=== PATIENT | female | born 1935 | race Two or more races ===

== ENCOUNTER 2018-07-31 10:50 | Emergency (ER) | payer OTHER ==
[~2018-07-31] VITALS: Ht 152.4 cm; Wt 59.0 kg
[2018-07-31] MEDS ORDERED: SYNTHROID50 MCG (10:55)
== END 2018-07-31 16:31 | disposition home or self-care (01) ==
LOC: ER 10:50
DX: S52.591A Other fractures of lower end of right radius, initial encounter for closed fracture (principal); S70.01XA Contusion of right hip, initial encounter; E11.65 Type 2 diabetes mellitus with hyperglycemia; N39.0 Urinary tract infection, site not specified; B96.29 Other Escherichia coli [E. coli] as the cause of diseases classified elsewhere; B96.1 Klebsiella pneumoniae [K. pneumoniae] as the cause of diseases classified elsewhere; W18.09XA Striking against other object with subsequent fall, initial encounter; Y93.89 Activity, other specified; Y92.018 Other place in single-family (private) house as the place of occurrence of the external cause; Y99.8 Other external cause status; S29.8XXA Other specified injuries of thorax, initial encounter

== ENCOUNTER 2018-11-02 11:45 | Inpatient (IN) | payer OTHER ==
[~2018-11-02] VITALS: Ht 157.5 cm; Wt 45.4 kg
[~2018-11-02 11:45] MED LIST: SYNTHROID50 MCG PO
[2018-11-02] MEDS ORDERED: HORIZANT600 MG PO (13:01)
[2018-11-02] MEDS ORDERED: LANTUS SOL100 UNIT/1 SUBCUTANEO (13:02)
[2018-11-09] MEDS ORDERED: TYLENOL EXTRA500 MG PO (10:24)
== END 2018-11-09 14:25 | disposition home or self-care (01) | DRG 330 ==
LOC: ADM 11:45 → EDSTATUS 11:45 → SURH 11-05 05:30 → O/R 11-05 06:35 → SURH 11-05 06:35 → EDBD 11-05 11:45 → SURH 11-05 11:45
PROVIDERS: ADMIT Surgery
PROC: 4A12X4Z Monitoring of Cardiac Electrical Activity, External Approach (ICD-10-PCS; 2018-11-05)
PROC: 0D1L4Z4 Bypass Transverse Colon to Cutaneous, Percutaneous Endoscopic Approach (ICD-10-PCS; principal; 2018-11-09)
DX: N82.3 Fistula of vagina to large intestine (principal); N39.0 Urinary tract infection, site not specified; D62 Acute posthemorrhagic anemia; R15.9 Full incontinence of feces; M25.551 Pain in right hip; L89.150 Pressure ulcer of sacral region, unstageable; E03.8 Other specified hypothyroidism; E11.40 Type 2 diabetes mellitus with diabetic neuropathy, unspecified; Z74.01 Bed confinement status; Z85.038 Personal history of other malignant neoplasm of large intestine; K62.89 Other specified diseases of anus and rectum; Z08 Encounter for follow-up examination after completed treatment for malignant neoplasm

== ENCOUNTER 2020-01-31 09:01 | Outpatient (CLI) | payer OTHER ==
[~2020-01-31 09:01] MED LIST changes: +HORIZANT600 MG PO; +LANTUS SOL100 UNIT/1 SUBCUTANEO; +TYLENOL EXTRA500 MG PO
== END 2020-01-31 09:58 | disposition home or self-care (01) ==
LOC: LAB 09:01
PROVIDERS: ATTEND Surgery
DX: N82.3 Fistula of vagina to large intestine (principal); R15.9 Full incontinence of feces; K62.89 Other specified diseases of anus and rectum; Z85.038 Personal history of other malignant neoplasm of large intestine; Z93.3 Colostomy status

== ENCOUNTER 2020-02-13 07:08 | Day surgery (SDC) | payer OTHER | END 2020-02-13 12:00 | disposition home or self-care (01) | LOC: AMB-ENDOS 07:08 | PROVIDERS: ATTEND Surgery | DX: D12.3 Benign neoplasm of transverse colon (principal) ==